=== PATIENT | female | born 1960 | race Caucasian/White ===

== ENCOUNTER 2017-05-14 09:29 | Outpatient (CLI) | payer OTHER | END 2017-05-14 17:30 | disposition home or self-care (01) | LOC: SMA 09:29 | PROVIDERS: ATTEND Family Medicine | DX: D24.2 Benign neoplasm of left breast (principal); N63.20 Unspecified lump in the left breast, unspecified quadrant; Z85.3 Personal history of malignant neoplasm of breast; Z98.82 Breast implant status | CPT/HCPCS: 76641; G0206 ==

== ENCOUNTER 2018-06-06 13:01 | Outpatient (CLI) | payer OTHER | END 2018-06-06 20:22 | disposition home or self-care (01) | LOC: SMA 13:01 | PROVIDERS: ATTEND Family Medicine | DX: R92.2 Inconclusive mammogram (principal); Z85.3 Personal history of malignant neoplasm of breast | CPT/HCPCS: 76641; 77065 ==